=== PATIENT | female | born 1945 | race African-American/Black ===

== ENCOUNTER 2017-05-15 12:20 | Inpatient (IN) | payer OTHER ==
[~2017-05-15] VITALS: Ht 152.4 cm; Wt 82.1 kg
[~2017-05-15 12:20] MED LIST: ALDACTONE25 MG; ALDACTONE25 MG PO; ASPIRIN81 M2 PO; CLEOCIN HCL150 MG; CLEOCIN HCL150 MG PO; COREG6.25 MG PO; EFFEXOR XR37.5 MG PO; ESTRACE1 MG PO; FLEXERIL PO; HYDROCHLOROTHIA25 M1 PO; IBUPROFEN 800800 M1 PO; LISINOPRIL5 MG PO; NORCO 5-325 TA1 EACH PO; PRED FORTE 1% EY5 M1 OP; PRILOSEC 20 MG20 MG PO; PROPRANOLOL 8080 MG; PROPRANOLOL 8080 MG PO; PROZAC 20 MG20 M1 PO; SULFACETAMIDE 115 M1 OP; TRAZODONE 150150 M1 PO; TRIAMTERENE-HC1 EAC1 PO; VITAMIN D 5050000 I1; VITAMIN D1000 UNI1 PO
[2017-05-15 12:28] VITALS: BP 129/75
[2017-05-15] MEDS ORDERED: KLOR-CON 1010 MEQ PO (12:33)
[2017-05-15] MEDS ORDERED: LASIX 20 MG TAB20 MG PO (12:33)
[2017-05-15 12:53] LABS: ABSOLUTE EOSINOPHILS 0.4 thou/uL (0.0-0.7); ABSOLUTE LYMPHOCYTES 1.2 thou/uL (0.8-5.3); ABSOLUTE MONOCYTES 0.7 thou/uL (0.0-1.2); ABSOLUTE NEUTROPHILS 3.3 thou/uL (1.6-8.1); BASOPHILS 0.7 %; EOSINOPHILS 7.8 %; HEMATOCRIT 36.9 % (37.0-47.0); HEMOGLOBIN 12.4 gm/dL (12.0-15.0); LYMPHOCYTES 21.1 %; MCH 32.1 pg (26.0-34.0); MCHC 33.5 g/dL (28.0-37.0); MCV 95.8 fL (80.0-100.0); MPV 8.3 fl. (7.2-11.1); NUCLEATED RBCS 0 /100WBC; PLATELET COUNT* 200 thou/uL (150-400); POLYS 58.4 %; RBC 3.86 mil/uL (4.20-5.00); RDW-CV 13.1 % (10.5-14.5); WBC 5.6 thou/uL (4.0-11.0)
[2017-05-15 13:01] LABS: ANION GAP 8 mmol/L (7-16); BUN 13 mg/dL (7-18); CALCIUM 8.9 mg/dL (8.5-10.1); CHLORIDE 108 mmol/L (98-107); CO2 30 mmol/L (21-32); CREATININE 0.8 mg/dL (0.6-1.3); GLUCOSE 128 mg/dL (70-99); POTASSIUM 3.4 mmol/L (3.5-5.1); SODIUM 146 mmol/L (136-145)
[2017-05-15 13:11] LABS: ALBUMIN 3.3 g/dL (3.4-5.0); ALKALINE PHOSPHATASE 80 U/L (46-116); LIPASE 112 U/L (73-393); MAGNESIUM 1.6 mg/dL (1.8-2.4); NT-PRO BRAIN NAT PEPTIDE 57 pg/mL (<300); SGOT 15 U/L (15-37); SGPT 14 U/L (30-65); TOTAL BILIRUBIN 0.6 mg/dL (<0.1-1.0); TROPONIN-I LEVEL <0.06 ng/mL (<0.06)
--- NOTE | 2017-05-15 16:23 | EKG ---
[place] [address] ELECTROCARDIOGRAM REPORT Name: JOSUÉ FOY Room: [place] [address] ADM IN .R.#: [id number] Admission: 05/15/17 Attend Phys: Jocy Masterson MD Discharge: Date of : 47 Report #: [id number] THIS REPORT FOR: //name// [facility] ED Test Date: 2017-05-15 Test Time: 12:30:38 Pat Name: JOSUÉ FOY Department: Room: [facility] Gender: F Drag Down: [facility] : 1945 Requested By: Jerry Calrk Order Number: [id number] MD: Mac Graham Measurements Intervals [place] Rate: 102 P: 39 MO: 178 QRS: 13 QRSD: 94 T: 129 QT: 363 QTc: 473 Interpretive Statements Sinus tachycardia Abnormal R-wave progression, early transition LVH with secondary repolarization abnormality Compared to ECG 10/18/2016 08:58:49 Early repolarization now present Electronically Signed On 05-15-2017 16:22:50 CHRO by Mac Graham [email or web address] <ELECTRONICALLY SIGNED> By: Mac Graham MD, [facility] 05/15/17 1622 1230 1230 Mac Graham MD, [facility] /EPI
[2017-05-15 18:08] VITALS: BP 148/75
[2017-05-15 20:45] VITALS: BP 152/88
[2017-05-15 21:25] VITALS: BP 150/87
[2017-05-16] VITALS: BP 110/47
[2017-05-16 03:50] VITALS: BP 135/81
[2017-05-16 05:27] LABS: HEMATOCRIT 37.3 % (37.0-47.0); HEMOGLOBIN 12.5 gm/dL (12.0-15.0); MCH 32.1 pg (26.0-34.0); MCHC 33.6 g/dL (28.0-37.0); MCV 95.4 fL (80.0-100.0); MPV 8.7 fl. (7.2-11.1); RBC 3.91 mil/uL (4.20-5.00); RDW-CV 13.1 % (10.5-14.5); WBC 5.5 thou/uL (4.0-11.0)
[2017-05-16 05:45] LABS: ALBUMIN 3.2 g/dL (3.4-5.0); CALCIUM 8.9 mg/dL (8.5-10.1); CREATININE 0.6 mg/dL (0.6-1.3); MAGNESIUM 2.5 mg/dL (1.8-2.4); POTASSIUM 4.3 mmol/L (3.5-5.1); TOTAL BILIRUBIN 0.4 mg/dL (<0.1-1.0); TOTAL PROTEIN 6.4 g/dL (6.4-8.2)
[2017-05-16 08:45] VITALS: BP 139/76
[2017-05-16 11:53] VITALS: BP 161/83
--- NOTE | 2017-05-16 17:52 | CARDNUC ---
[place] [address] CARDIAC NUCLEAR IMAGING REPORT Name: JOSUÉ FOY Room: [address] IN [facility]#: [id number] Admission: 05/15/17 Attend Phys: Jocy Masterson, Discharge: Date of : 47 Date of Service: 05/16/17 1752 Report #: [id number] THIS REPORT FOR: //name// APPROVED REPORT Exam: Nuclear Stress Test Indication: Chest pain Patient Location: In-Patient Room #: 210 Stress Tech: Shanelle Velazquez Stress Nurse: Aleah Fish RN Ht: 5 ft 0 in Wt: 169 lbs BSA: 1.74 m2 BMI: 33.00 Medical History Medical History: mi, cad, Medications: carvedilol, enoxaparin, asa, furosemide Allergies: vancomycin, penicillan Cardiac Risk Factors: age, htn, family hx Exercise History: Indeterminate Meds Held (24 hrs): carvedilol Stress Test Details Stress Test: Pharmacologic stress testing performed using 0.4 mg of regadenoson per 5 mL given IV over 10 seconds. Reason for pharmacologic stress test: physical limitation. Reversal agent Aminophyline 50 mg, given intravenously for headache. HR Resting HR: 89 bpm Max Heart Rate (APMHR): 150 bpm Max HR Achieved: 113 bpm Target HR (85% APMHR): 127 bpm % of APMHR: 75 Recovery HR: 107 bpm BP Resting BP: 147/78 mmHg Max BP: 145/85 mmHg ECG Resting ECG: Sinus Rhythm, normal EKG Stress ECG: Sinus Rhythm, normal EKG ST Change: None Arrhythmia: None Recovery ECG: Sinus Rhythm, [place] [address] CARDIAC NUCLEAR IMAGING REPORT Name: JOSUÉ FOY Room: [address]#: [id number] Admission: 05/15/17 Attend Phys: Jocy Masterson, Discharge: Date of : 47 Date of Service: 05/16/17 1752 Report #: [id number] Change: None Recovery Arrhythmia: None Clinical Reason for Termination: Completed protocol Exercise duration: 0 min sec Exercise capacity: 1 METs Functional Aerobic Impairment 75% The patient had no significant chest discomfort with Lexiscan stress. Nurse Comments pt did not have wheezes but did have crackles. o2 at 2l/nc was applied during test. pt co headache after test, was given caffeine to dring and aminophylline with complete relief Stress ECG Conclusion The baseline 12-lead electrocardiogram showed normal sinus rhythm without significant ST or T wave abnormality. EKGs obtained during and post Lexiscan infusion showed sinus rhythm with no significant ST or T wave changes when compared to baseline. There were no stress-induced arrhythmias. NM EXAM: Myocardial Perfusion REST/STRESS Imaging Protocol: Rest Tc-99m/Stress Tc-99m 1 day Resting Data Rest SPECT myocardial perfusion imaging was performed in supine position 30 minutes following the intravenous injection of 10.1 mCi of Tc-99m Sestamibi. Time of rest injection: 1100 Time of rest imagin The images were gated to evaluate regional wall motion and calculate left ventricular ejection fraction. Administration Route: IV Administration Site: Right Arm Pharmacologic Stress Pharmacologic stress test was performed by injecting Regadenoson 0.4 mg IV push followed by the intravenous injection of 35.1 mCi of Tc-99m Sestamibi. Time of stress injection: 1220 Time of stress imagin Administration Route: IV Administration Site: Right Arm Heart Rate at time of stress injection: [address] [place] [address] CARDIAC NUCLEAR IMAGING REPORT Name: JOSUÉ FOY Room: [address]#: [id number] Admission: 05/15/17 Attend Phys: Jocy Masterson, Discharge: Date of : 47 Date of Service: 05/16/17 1752 Report #: [id number] Gated Stress SPECT was performed 40 minutes after stress injection. The images were gated to evaluate regional wall motion and calculate left ventricular ejection fraction. Prone imaging was performed. Study Quality Study: Good Artifact: No artifact Study Data At rest, the left ventricular ejection fraction was 30%.. Post stress, the left ventricular ejection was 42%.. TID = 0.96. Perfusion Perfusion images obtained at rest and post Lexiscan stress show a small in size moderate intensity apical defect consistent with prior apical infarct. No other significant defects are identified. Wall Motion There is mild global hypokinesis with significant hypokinesis involving the apex and inferoapical wall. Left ventricular systolic function is mildly decreased. Nuclear Conclusion ECG Findings: negative for ischemia Clinical Findings: negative for ischemia Nuclear Findings: negative for ischemia Exercise Capacity: not assessed Left Ventricular Function: abnormal Risk Study: low There is a fixed defect involving the apex consistent with prior infarct. There is no evidence of stress-induced ischemia. Left ventricular systolic function appears to be mildly decreased with an apical wall motion abnormality. Is not a high risk study. <Conclusion> The baseline 12-lead electrocardiogram showed normal sinus rhythm without significant ST or T wave abnormality. EKGs obtained during and post Lexiscan infusion showed sinus rhythm with [place] [address] CARDIAC NUCLEAR IMAGING REPORT Name: JOSUÉ FOY Room: [address] IN [facility].#: [id number] Admission: 05/15/17 Attend Phys: Jocy Masterson, Discharge: Date of : 47 Date of Service: 05/16/17 1752 Report #: [id number] or T wave changes when compared to baseline. There were no stress-induced arrhythmias. <ELECTRONICALLY SIGNED> By: Trevon Vera MD, FACC 05/16/171751 51 51 Trevon Vera MD, FACC /INF
[2017-05-16 20:00] VITALS: BP 145/65
[2017-05-17] VITALS: BP 132/65
[2017-05-17 04:00] VITALS: BP 140/77
[2017-05-17 08:16] VITALS: BP 142/85
[2017-05-17] MEDS ORDERED: DOXYCYCLINE 10100 MG PO (10:46)
[2017-05-17 12:00] VITALS: BP 160/94
[2017-05-17 15:44] VITALS: BP 160/94
== END 2017-05-17 16:45 | disposition home or self-care (01) | DRG 206 ==
LOC: M.ERS 12:20 → M.2W 14:09 → M.TBA-ER 14:09 → M.2W 20:51
PROVIDERS: Emergency Medicine Emergency Medical Services; ADMIT Internal Medicine
DX: M94.0 Chondrocostal junction syndrome [Tietze] (principal); L03.114 Cellulitis of left upper limb; I42.8 Other cardiomyopathies; R65.10 Systemic inflammatory response syndrome (SIRS) of non-infectious origin without acute organ dysfunction; I10 Essential (primary) hypertension; K21.9 Gastro-esophageal reflux disease without esophagitis; M19.90 Unspecified osteoarthritis, unspecified site; G43.909 Migraine, unspecified, not intractable, without status migrainosus; G47.33 Obstructive sleep apnea (adult) (pediatric); J45.909 Unspecified asthma, uncomplicated; Z85.3 Personal history of malignant neoplasm of breast; Z92.3 Personal history of irradiation; Z88.0 Allergy status to penicillin; Z88.1 Allergy status to other antibiotic agents; Z90.710 Acquired absence of both cervix and uterus; Z90.11 Acquired absence of right breast and nipple; Z79.82 Long term (current) use of aspirin; Z79.899 Other long term (current) drug therapy

== ENCOUNTER → 2017-06-05 | Outpatient (CLI) | payer OTHER ==
[~2017-06-05] MED LIST changes: +DOXYCYCLINE 10100 MG PO; +KLOR-CON 1010 MEQ PO; +LASIX 20 MG TAB20 MG PO
== END ==
LOC: M.RAD 11:54
DX: J11.1 Influenza due to unidentified influenza virus with other respiratory manifestations (principal)

== ENCOUNTER → 2017-07-22 | Outpatient (CLI) | payer OTHER | LOC: M.RAD 15:52 | DX: J40 Bronchitis, not specified as acute or chronic (principal); R05 Cough; R53.81 Other malaise ==

== ENCOUNTER → 2017-09-11 | Outpatient (CLI) | payer OTHER ==
[2017-09-11 15:10] LABS: CREATININE 0.7 mg/dL (0.6-1.3)
== END ==
LOC: M.CT 09-05 10:13
PROVIDERS: Internal Medicine Pulmonary Disease
DX: J84.10 Pulmonary fibrosis, unspecified (principal); J43.9 Emphysema, unspecified; I70.0 Atherosclerosis of aorta; K76.89 Other specified diseases of liver

== ENCOUNTER → 2017-11-28 | Outpatient (CLI) | payer OTHER | LOC: M.LAB 15:43 | DX: L65.9 Nonscarring hair loss, unspecified (principal); Z85.3 Personal history of malignant neoplasm of breast; I10 Essential (primary) hypertension; K21.9 Gastro-esophageal reflux disease without esophagitis; M19.90 Unspecified osteoarthritis, unspecified site; J45.909 Unspecified asthma, uncomplicated ==

== ENCOUNTER → 2018-01-20 | Outpatient (CLI) | payer OTHER | LOC: M.RAD 12:52 | DX: Z12.31 Encounter for screening mammogram for malignant neoplasm of breast (principal) ==

== ENCOUNTER → 2020-02-04 | Outpatient (CLI) | payer OTHER ==
[2020-02-04] VITALS (9 sets, daily range): BP systolic 115–149; BP diastolic 70–98
[~2020-02-04] VITALS: Ht 152.4 cm; Wt 72.1 kg
[2020-02-04 10:02] LABS: HEMATOCRIT 37.5 % (37.0-47.0); HEMOGLOBIN 12.4 gm/dL (12.0-15.0); MCH 31.7 pg (26.0-34.0); MCHC 33.1 g/dL (28.0-37.0); MCV 95.9 fL (80.0-100.0); MPV 7.9 fl. (7.2-11.1); RBC 3.91 mil/uL (4.20-5.00); RDW-CV 13.6 % (10.5-14.5); WBC 5.3 thou/uL (4.0-11.0)
[2020-02-04 10:16] LABS: ANION GAP 7 mmol/L (7-16); BUN 19 mg/dL (7-18); CALCIUM 9.5 mg/dL (8.5-10.1); CHLORIDE 105 mmol/L (98-107); CO2 31 mmol/L (21-32); CREATININE 0.7 mg/dL (0.6-1.3); GLUCOSE 107 mg/dL (70-99); POTASSIUM 3.5 mmol/L (3.5-5.1); SODIUM 143 mmol/L (136-145)
[2020-02-04 10:20] LABS: ALBUMIN 3.8 g/dL (3.4-5.0); ALKALINE PHOSPHATASE 77 U/L (46-116); CHOLESTEROL 161 mg/dL (<200); HDL CHOLESTEROL 71 mg/dL (>40); LDL CHOLESTEROL 77 mg/dL (<100); SERUM ASSESSMENT Clear; SGOT 20 U/L (15-37); SGPT 19 U/L (30-65); TC:HDL 2.3 Ratio (Not establshd); TOTAL BILIRUBIN 0.9 mg/dL (<0.1-1.0); TRIGLYCERIDE 68 mg/dL (<150); VLDL 14 mg/dL (<40)
[2020-02-04 10:56] LABS: APTT 24.7 Seconds (25.0-31.3); INR 1.1; PROTIME 11.2 Seconds (9.20-11.50)
--- NOTE | 2020-02-04 10:56 | EKG ---
[place] [address] ELECTROCARDIOGRAM REPORT Name: JOSUÉ FOY Room: [facility]#: [id number] Admission: 02/04/20 Attend Phys: Trevon Vera, Discharge: Date of : 47 Date of Service: 02/04/20 0944 Report #: [id number] THIS REPORT FOR: //name// [facility] Test Date: 2020-02-04 Test Time: 09:44:11 Pat Name: JOSUÉ FOY Department: Room: Gender: F Automotive Manager: : 1945 Requested By: Trevon Vera Order Number: [id number] MD: Taurus Jama Measurements Intervals [place] Rate: 96 P: 46 IA: 163 QRS: 8 QRSD: 96 T: 63 QT: 457 QTc: 578 Interpretive Statements Sinus rhythm Abnormal R-wave progression, early transition Left ventricular hypertrophy Prolonged QT interval Compared to ECG 05/15/2017 12:30:38 Prolonged QT interval now present Sinus tachycardia no longer present Electronically Signed On 02-04-2020 10:56:03 STRAP BUCKLER by Taurus Jama [email or web address] <ELECTRONICALLY SIGNED> By: Taurus Jama MD, FAC 02/04/20 1056 0944 0944 Taurus Jama MD, [facility] /EPI
--- NOTE | 2020-02-11 18:51 | CARD ---
[address] [address] CARDIAC CATH REPORT Name: JOSUÉ FOY Room: [facility]#: [id number] Admission: 02/04/20 Attend Phys: Trevon Vera MD Discharge: Date of : 47 Report #: [id number] THIS REPORT FOR: //name// cc: Vanessa Jalloh Linda J. DO ~ APPROVED REPORT Study performed: 02/04/2020 10:31:02 Patient Status: Out-Patient Room #: Event Personnel: Trevon Vera Employee Placement Specialist, Rosie Lowry RN RN, David Guzman RTR Scrub, Lexi Jaeger RTR Monitor Exam: Insertion of a Single Lead ICD Device Indications: Nonischemic cardiomyopathy The patient is a 74 year-old female with a history of . Patient Info Last EF%: 25% Date: November, NYHA Heart Class: II CHF: Chronic Systolic Conscious Sedation Start time: 10:48 End Time: 11:25 Fentanyl 50 mcg Versed 2 mg Implanted Devices: Generator- Biotronik Acticor 7 VR-T DX DF 4 pro-MRI, serial #[id number] single-chamber ICD pulse generator Lead- Biotronik Plexa ProMRI S DX 65/15, serial #[id number] pacing ICD lead Procedure The patient underwent informed consent. We discussed the details of the procedure including the risks, which include, but not limited to bleeding, infection, vascular damage, cardiac perforation, and pneumothorax. She understood these risks and was willing to proceed. As such, she was brought to the EP/Cardiac Catheterization laboratory in a fasting and sedated state and prepped and draped in a sterile fashion, received IV antibiotics prior to initiation of the procedure and a venogram was performed showing patency of the left axillary vein. The patient underwent conscious sedation, with no related complications. The patient was brought to the EP/Cardiac Catheterization laboratory and the left chest and shoulder were prepped and [place] [address] CARDIAC CATH REPORT Name: JOSUÉ FOY Room: [facility]#: [id number] Admission: 02/04/20 Attend Phys: Trevon Vera MD Discharge: Date of : 47 Report #: [id number] manner. During this case, Fluoroscopy and Visipaque 20 ml were used for imaging. The left subclavian region was infiltrated with 2% Lidocaine with Epinephrine subcutaneous anesthesia. A transverse incision was made in the left upper chest cavity. The subcutaneous pocket was formed via blunt dissection. Percutaneous venous access was achieved and an introducer sheath was inserted into the left Subclavian vein. Sheaths were positions using the modified Seldinger technique Utilizing fluoroscopic guidance, the ventricular lead wire was advanced over the wires and positioned in the right atria and right ventricle respectively. Capturing and sensing thresholds were verified. Electrode Parameters R Wave: 10.0 mV Ventricular Threshold: 0.5 V at 0.40 ms Ventricular Resistance: 800 ohms Single Chamber The atrial and ventricular leads were then secured using 0 silk sutures. The subcutaneous pocket was irrigated with ancef antibiotic solution.The ventricular lead was attached to the appropriate receptacle on the pulse generator and set screws firmly tightened to insure adequate contact and stability. The lead and pulse generator were placed into the subcutaneous pocket. Sharp and sponge counts were confirmed to be correct. At this time the pocket was closed subcutaneously with a 2.0 Vicryl and the skin was closed with a 4.0 Vicryl. The operative site was dressed in sterile fashion with Benzoin spray, Steri strips, Telfa and Tegaderm and the patient was transferred to the floor in stable condition. Complications The patient tolerated the procedure well and there were no complications associated with the procedure. D Stat flowable was also inserted in the pocket. Findings Specimens Removed: No Estimated Blood Loss: 5 [place] [address] CARDIAC CATH REPORT Name: JOSUÉ FOY Room: [facility]#: [id number] Admission: 02/04/20 Attend Phys: Trevon Vera MD Discharge: Date of : 47 Report #: [id number] 1. Nonischemic cardiomyopathy. 2. Successful placement of a single lead pacing ICD for primary prevention. Recommendations 1. Follow-up site check in 1 week. 2. Follow-up device interrogation in the office in 1 to 2 months. <ELECTRONICALLY SIGNED> By: Trevon Vera MD, FACC 02/11/201850 50 50Micamanda Vera MD, FACC /INF
== END | disposition home or self-care (01) ==
LOC: M.CL 09:09
PROVIDERS: ATTEND Internal Medicine Cardiovascular Disease
DX: I42.0 Dilated cardiomyopathy (principal); R00.9 Unspecified abnormalities of heart beat; R00.2 Palpitations; G47.30 Sleep apnea, unspecified; R06.02 Shortness of breath; M19.90 Unspecified osteoarthritis, unspecified site; K21.9 Gastro-esophageal reflux disease without esophagitis; J45.909 Unspecified asthma, uncomplicated; G43.909 Migraine, unspecified, not intractable, without status migrainosus; Z98.890 Other specified postprocedural states; Z79.899 Other long term (current) drug therapy; Z85.3 Personal history of malignant neoplasm of breast; Z90.710 Acquired absence of both cervix and uterus; Z79.891 Long term (current) use of opiate analgesic; Z88.0 Allergy status to penicillin; Z88.8 Allergy status to other drugs, medicaments and biological substances

== ENCOUNTER 2020-03-16 11:44 | Inpatient (IN) | payer OTHER ==
[~2020-03-16] VITALS: Ht 152.4 cm; Wt 75.7 kg
[2020-03-16 11:45] VITALS: BP 163/84
[2020-03-16 12:56] LABS: ABSOLUTE EOSINOPHILS 0.4 thou/uL (0.0-0.7); ABSOLUTE LYMPHOCYTES 1.3 thou/uL (0.8-5.3); ABSOLUTE MONOCYTES 0.8 thou/uL (0.0-1.2); BASOPHILS 0.5 %; EOSINOPHILS 5.5 %; HEMATOCRIT 37.8 % (37.0-47.0); HEMOGLOBIN 12.6 gm/dL (12.0-15.0); LYMPHOCYTES 17.4 %; MCH 31.8 pg (26.0-34.0); MCHC 33.4 g/dL (28.0-37.0); MONOCYTES 11.2 %; MPV 8.3 fl. (7.2-11.1); NUCLEATED RBCS 0 /100WBC; PLATELET COUNT* 188 thou/uL (150-400); POLYS 65.4 %; RBC 3.98 mil/uL (4.20-5.00); RDW-CV 13.7 % (10.5-14.5); WBC 7.6 thou/uL (4.0-11.0)
[2020-03-16 13:03] LABS: BE 0.2 mmol/L (-2 to +3); PCO2 38.7 mmHg (35.0-45.0)
[2020-03-16 13:05] LABS: CALCIUM 8.6 mg/dL (8.5-10.1); CREATININE 0.8 mg/dL (0.6-1.3); POTASSIUM 3.4 mmol/L (3.5-5.1)
[2020-03-16 13:07] LABS: APTT 26.5 Seconds (25.0-31.3); INR 1.1; PROTIME 11.5 Seconds (9.20-11.50)
[2020-03-16 13:08] LABS: PO2 143.5 mmHg (75.0-100.0)
[2020-03-16 13:16] LABS: ALBUMIN 3.4 g/dL (3.4-5.0); TOTAL BILIRUBIN 0.9 mg/dL (<0.1-1.0); TOTAL PROTEIN 7.2 g/dL (6.4-8.2)
[2020-03-16 16:30] VITALS: BP 135/77
[2020-03-16 17:00] VITALS: BP 132/79
--- NOTE | 2020-03-16 18:26 | EKG ---
[place] [address] ELECTROCARDIOGRAM REPORT Name: JOSUÉ FOY Room: [address] IN .R.#: [id number] Admission: 03/16/20 Attend Phys: Eddie Rees, Discharge: Date of : 47 Date of Service: 03/16/20 1307 Report #: [id number] THIS REPORT FOR: //name// [facility] ED Test Date: 2020-03-16 Test Time: 13:07:02 Pat Name: JOSUÉ FOY Department: Room: [facility] Gender: F Datawarehouse Developer: MELO : 1945 Requested By: Gen Multani Order Number: [id number] MD: Pan Toledo Measurements Intervals [place] Rate: 98 P: 50 DE: 158 QRS: 8 QRSD: 95 T: 31 QT: 410 QTc: 524 Interpretive Statements Sinus rhythm Abnormal R-wave progression, early transition Left ventricular hypertrophy Prolonged QT interval Compared to ECG 02/04/2020 09:44:11 No significant changes Electronically Signed On 03-16-2020 18:26:38 STEAM TABLE ASSOCIATE by Pan Toledo [email or web address] <ELECTRONICALLY SIGNED> By: Damián Toledo MD, [facility] 03/16/20 1826 1307 130 Damián Toledo MD, [facility] /EPI
[2020-03-16 20:00] VITALS: BP 98/44
[2020-03-17] VITALS (8 sets, daily range): BP systolic 100–137; BP diastolic 53–81
[2020-03-17 06:34] LABS: ABSOLUTE LYMPHOCYTES 0.7 thou/uL (0.8-5.3); ABSOLUTE MONOCYTES 0.1 thou/uL (0.0-1.2); ABSOLUTE NEUTROPHILS 4.2 thou/uL (1.6-8.1); BASOPHILS 0.2 %; EOSINOPHILS 0.1 %; HEMATOCRIT 39.6 % (37.0-47.0); LYMPHOCYTES 14.7 %; MCH 31.5 pg (26.0-34.0); MCHC 32.8 g/dL (28.0-37.0); MONOCYTES 1.8 %; MPV 8.4 fl. (7.2-11.1); NUCLEATED RBCS 0 /100WBC; PLATELET COUNT* 224 thou/uL (150-400); POLYS 83.2 %; RBC 4.12 mil/uL (4.20-5.00); RDW-CV 13.5 % (10.5-14.5); WBC 5.1 thou/uL (4.0-11.0)
[2020-03-17 06:49] LABS: CALCIUM 9.2 mg/dL (8.5-10.1); CREATININE 0.6 mg/dL (0.6-1.3); POTASSIUM 3.7 mmol/L (3.5-5.1)
[2020-03-17 11:15] LABS: CHOLESTEROL 155 mg/dL (<200); HDL CHOLESTEROL 72 mg/dL (>40); LDL CHOLESTEROL 77 mg/dL (<100); TC:HDL 2.2 Ratio (Not establshd); TRIGLYCERIDE 31 mg/dL (<150); VLDL 6 mg/dL (<40)
[2020-03-17 11:16] LABS: SERUM ASSESSMENT Clear
--- NOTE | 2020-03-17 17:08 | 2DMMODE ---
[place] [address] 2 D/M-MODE ECHOCARDIOGRAM Name: HUNG FOYROSEMARY Gonzales Room: [address] [facility].#: [id number] Admission: 03/16/20 Attend Phys: Eddie Rees, Discharge: Date of : 47 Date of Service: 03/17/20 1707 Report #: [id number] THIS REPORT FOR: cc: Vanessa Jalloh,Vanessa Saucedo,Mac Morales MD [facility] ~ APPROVED REPORT Study performed: 03/17/2020 11:03:09 EXAM: Comprehensive 2D, Doppler, and color-flow Echocardiogram Patient Location: In-Patient Room #: [facility] Status: routine BSA: 1.73 HR: 90 bpm BP: 137/71 mmHg Rhythm: NSR Other Information Study Quality: Adequate Indications Dyspnea 2D Dimensions LVOT Diam: 20.75 (18-24mm) Ascending Ao: 37.35 (22-36mm) Aortic Root: 28.48 mm Volumes Left Atrial Volume (Systole) LA ESV Index: 40.80 mL/m2 Aortic Valve AoV Peak [place].: 1.18 m/s AO Peak Gr.: 5.58 mmHg LVOT Max P.81 mmHg AO Mean Gr.: 3.35 mmHg LVOT Mean P.49 mmHg LVOT Max V: 0.84 m/s AO V2 VTI: 21.60 cm LVOT Mean V: 0.57 m/s AURA (VTI): 2.23 cm2 LVOT V1 VTI: 14.25 cm TDI Medial E' [place].: 0.10 m/[place] [address] 2 D/M-MODE ECHOCARDIOGRAM Name: JOSUÉ FOY Room: [address] [facility].#: [id number] Admission: 03/16/20 Attend Phys: Eddie Rees, Discharge: Date of : 47 Date of Service: 03/17/20 1707 Report #: [id number] Lateral E' [place].: 0.14 m/s Left Ventricle Left ventricle is mildly dilated. There is diffuse hypokinesis of left ventricular wall motion. There is normal left ventricular wall thickness. Left ventricular systolic function is severely decreased. LVEF is 25-30%. This study is not technically sufficient to allow evaluation of the LV diastolic function. Right Ventricle The right ventricle is normal size. The right ventricular systolic function is normal. Pacemaker lead is present in the right ventricle. Atria Left atrium is mildly dilated. The right atrium size is normal. Aortic Valve Mild aortic valve sclerosis. No aortic regurgitation is present. There is no aortic valvular stenosis. Mitral Valve There is mitral annular calcification. Mild mitral regurgitation. No evidence of mitral valve stenosis. Tricuspid Valve The tricuspid valve is normal in structure. Trace tricuspid regurgitation. Unable to assess PA pressure. Pulmonic Valve The pulmonary valve is normal in structure. There is no pulmonic valvular regurgitation. Great Vessels The aortic root is normal in size. IVC is normal in size and collapses >50% with inspiration. Pericardium There is no pericardial effusion. <Conclusion> Left ventricle is mildly dilated. There is normal left ventricular wall thickness. Left ventricular systolic function is severely decreased. LVEF is 25-30%. The right ventricle [place] [address] 2 D/M-MODE ECHOCARDIOGRAM Name: JOSUÉ FOY Room: [address] IN ..#: [id number] Admission: 03/16/20 Attend Phys: Eddie Rees, Discharge: Date of : 47 Date of Service: 03/17/20 1707 Report #: [id number] Left atrium is mildly dilated. Mild aortic valve sclerosis. No aortic regurgitation is present. There is no aortic valvular stenosis. There is mitral annular calcification. Mild mitral regurgitation. No evidence of mitral valve stenosis. The tricuspid valve is normal in structure. IVC is normal in size and collapses >50% with inspiration. There is no pericardial effusion. There is diffuse hypokinesis of left ventricular wall motion. Pacemaker lead is present in the right ventricle. <ELECTRONICALLY SIGNED> By: Mac Graham MD, FACC 03/17/201706 06 06 Mac Graham MD, FACC /INF
[2020-03-18 04:00] VITALS: BP 145/89
[2020-03-18 04:38] LABS: HEMATOCRIT 41.2 % (37.0-47.0); HEMOGLOBIN 13.4 gm/dL (12.0-15.0); MCH 30.8 pg (26.0-34.0); MCHC 32.6 g/dL (28.0-37.0); MCV 94.4 fL (80.0-100.0); MPV 8.5 fl. (7.2-11.1); NUCLEATED RBCS 0 /100WBC; PLATELET COUNT* 291 thou/uL (150-400); RBC 4.36 mil/uL (4.20-5.00); RDW-CV 13.4 % (10.5-14.5); WBC 15.8 thou/uL (4.0-11.0)
[2020-03-18 05:07] LABS: ALBUMIN 3.5 g/dL (3.4-5.0); CALCIUM 9.5 mg/dL (8.5-10.1); CREATININE 0.8 mg/dL (0.6-1.3); POTASSIUM 3.5 mmol/L (3.5-5.1); TOTAL BILIRUBIN 0.8 mg/dL (<0.1-1.0); TOTAL PROTEIN 7.8 g/dL (6.4-8.2)
[2020-03-18 06:24] LABS: ABSOLUTE LYMPHOCYTES 2.4 thou/uL (0.8-5.3); ABSOLUTE MONOCYTES 0.5 thou/uL (0.0-1.2); PLATELET ESTIMATE ADEQUATE
[2020-03-18 11:46] VITALS: BP 139/70
[2020-03-18 13:00] VITALS: BP 130/83
[2020-03-18 20:00] VITALS: BP 124/72
[2020-03-19] VITALS: BP 132/72
[2020-03-19 04:00] VITALS: BP 120/61
[2020-03-19 04:09] LABS: HEMOGLOBIN 13.4 gm/dL (12.0-15.0); MCH 31.1 pg (26.0-34.0); MCHC 32.8 g/dL (28.0-37.0); MCV 94.8 fL (80.0-100.0); MPV 8.4 fl. (7.2-11.1); RBC 4.33 mil/uL (4.20-5.00); RDW-CV 13.9 % (10.5-14.5); WBC 19.3 thou/uL (4.0-11.0)
[2020-03-19 04:45] LABS: ALBUMIN 3.4 g/dL (3.4-5.0); CALCIUM 9.4 mg/dL (8.5-10.1); CREATININE 0.8 mg/dL (0.6-1.3); MAGNESIUM 1.9 mg/dL (1.8-2.4); POTASSIUM 3.8 mmol/L (3.5-5.1); TOTAL BILIRUBIN 0.8 mg/dL (<0.1-1.0); TOTAL PROTEIN 7.4 g/dL (6.4-8.2)
[2020-03-19] MEDS ORDERED: POTASSIUM20 PO (07:33)
[2020-03-19] MEDS ORDERED: DOXYCYCLINE 10100 MG PO (07:33)
[2020-03-19] MEDS ORDERED: LASIX 40 MG TAB40 M1 PO (07:33)
[2020-03-19] MEDS ORDERED: PREDNISONE 10 M10 M1 PO (07:33)
[2020-03-19] MEDS ORDERED: COZAAR 25 MG TA25 M2 PO (07:33)
[2020-03-19] MEDS ORDERED: METOPROLOL SUCC25 M1 PO (07:33)
[2020-03-19] MEDS ORDERED: SPIRONOLACTONE25 MG PO (07:33)
[2020-03-19 09:13] VITALS: BP 120/61
[2020-03-19 09:46] VITALS: BP 117/79
== END 2020-03-19 10:55 | disposition home or self-care (01) | DRG 177 ==
LOC: M.ERS 11:44 → M.ORTHSURG 13:40 → M.TBA-ER 13:40 → M.2W 13:40 → M.ORTHSURG 16:40 → M.2W 03-18 13:42
PROVIDERS: Emergency Medicine; Internal Medicine; Registered Nurse; ADMIT Internal Medicine; ATTEND Internal Medicine
DX: J15.6 Pneumonia due to other Gram-negative bacteria (principal); J96.00 Acute respiratory failure, unspecified whether with hypoxia or hypercapnia; I50.23 Acute on chronic systolic (congestive) heart failure; J44.0 Chronic obstructive pulmonary disease with (acute) lower respiratory infection; I42.8 Other cardiomyopathies; I11.0 Hypertensive heart disease with heart failure; G43.909 Migraine, unspecified, not intractable, without status migrainosus; J20.9 Acute bronchitis, unspecified; K21.9 Gastro-esophageal reflux disease without esophagitis; E78.5 Hyperlipidemia, unspecified; M19.90 Unspecified osteoarthritis, unspecified site; G47.33 Obstructive sleep apnea (adult) (pediatric); Z20.828 Contact with and (suspected) exposure to other viral communicable diseases; Z85.3 Personal history of malignant neoplasm of breast; Z92.3 Personal history of irradiation; Z87.891 Personal history of nicotine dependence; Z90.710 Acquired absence of both cervix and uterus; Z79.899 Other long term (current) drug therapy; Z79.82 Long term (current) use of aspirin; Z88.1 Allergy status to other antibiotic agents; Z88.0 Allergy status to penicillin; Z95.810 Presence of automatic (implantable) cardiac defibrillator

== ENCOUNTER 2020-05-18 14:52 | Emergency (ER) | payer OTHER ==
[~2020-05-18] VITALS: Ht 167.6 cm; Wt 81.7 kg
[~2020-05-18 14:52] MED LIST changes: +COZAAR 25 MG TA25 M2 PO; +LASIX 40 MG TAB40 M1 PO; +METOPROLOL SUCC25 M1 PO; +POTASSIUM20 PO; +PREDNISONE 10 M10 M1 PO; +SPIRONOLACTONE25 MG PO
[2020-05-18] MEDS ORDERED: FLONASE 0.05%50 MCG NARES (15:01)
[2020-05-18 15:14] LABS: ABSOLUTE BASOPHILS 0.1 thou/uL (0.0-0.2); ABSOLUTE EOSINOPHILS 0.6 thou/uL (0.0-0.7); ABSOLUTE LYMPHOCYTES 2.1 thou/uL (0.8-5.3); ABSOLUTE MONOCYTES 1.2 thou/uL (0.0-1.2); ABSOLUTE NEUTROPHILS 4.7 thou/uL (1.6-8.1); BASOPHILS 0.8 %; EOSINOPHILS 6.4 %; HEMATOCRIT 42.1 % (37.0-47.0); LYMPHOCYTES 24.2 %; MCH 31.3 pg (26.0-34.0); MCHC 33.3 g/dL (28.0-37.0); MCV 94.2 fL (80.0-100.0); MONOCYTES 14.3 %; MPV 7.9 fl. (7.2-11.1); NUCLEATED RBCS 0 /100WBC; PLATELET COUNT* 289 thou/uL (150-400); POLYS 54.3 %; RBC 4.47 mil/uL (4.20-5.00); RDW-CV 13.6 % (10.5-14.5); WBC 8.6 thou/uL (4.0-11.0)
[2020-05-18 15:24] LABS: CALCIUM 9.6 mg/dL (8.5-10.1); CREATININE 0.8 mg/dL (0.6-1.3); POTASSIUM 4.4 mmol/L (3.5-5.1)
[2020-05-18 15:30] LABS: APTT 25.9 Seconds (25.0-31.3); PROTIME 10.9 Seconds (9.20-11.50)
[2020-05-18 15:37] LABS: ALBUMIN 3.9 g/dL (3.4-5.0); CK-MB MASS 0.9 ng/mL (<0.5-3.6); MAGNESIUM 1.8 mg/dL (1.8-2.4); TOTAL BILIRUBIN 0.7 mg/dL (<0.1-1.0)
--- NOTE | 2020-05-18 16:34 | EKG ---
[place] [address] ELECTROCARDIOGRAM REPORT Name: JOSUÉ FOY Room: [facility]#: [id number] Admission: 05/18/20 Attend Phys: Discharge: Date of : 47 Date of Service: 05/18/20 1503 Report #: [id number] THIS REPORT FOR: //name// [facility] ED Test Date: 2020-05-18 Test Time: 15:03:57 Pat Name: JOSUÉ FOY Department: Room: Gender: Physics Tutor: : 1945 Requested By: Magno Parr Order Number: [id number] MD: Taurus Jama Measurements Intervals [place] Rate: 123 P: 33 [place]: 140 QRS: 9 QRSD: 90 T: 162 QT: 310 QTc: 444 Interpretive Statements Sinus tachycardia Abnormal R-wave progression, early transition LVH with secondary repolarization abnormality Compared to ECG 03/16/2020 13:07:02 Early repolarization now present Sinus rhythm no longer present Prolonged QT interval no longer present Electronically Signed On 05-18-2020 16:33:57 THREADING MACHINE FEEDER AUTOMATIC by Taurus Jama [email or web address] <ELECTRONICALLY SIGNED> By: Taurus Jama MD, FAC 05/18/20 1633 1503 1503 Taurus Jama MD, [facility] /EPI
[2020-05-18] MEDS ORDERED: ZPAK PO (17:11)
[2020-05-18] MEDS ORDERED: FLEXERIL PO (17:11)
[2020-05-18] MEDS ORDERED: PREDNISONE 20 M20 M1 PO (17:11)
[2020-05-18] MEDS ORDERED: HYDROCODON-ACE1 EAC7 PO (17:11)
[2020-05-18 17:20] VITALS: BP 117/66
== END 2020-05-18 17:20 | disposition home or self-care (01) ==
LOC: M.ERS 14:52
PROVIDERS: Family Medicine
DX: M43.6 Torticollis (principal); I10 Essential (primary) hypertension; K21.9 Gastro-esophageal reflux disease without esophagitis; M19.90 Unspecified osteoarthritis, unspecified site; G43.909 Migraine, unspecified, not intractable, without status migrainosus; J45.909 Unspecified asthma, uncomplicated; G47.33 Obstructive sleep apnea (adult) (pediatric); Z85.3 Personal history of malignant neoplasm of breast; Z90.710 Acquired absence of both cervix and uterus